=== PATIENT | female | born 2000 | race Caucasian/White ===

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

== ENCOUNTER 2019-02-12 16:48 | Emergency (ER) | payer OTHER ==
[2019-02-12] MEDS ORDERED: Lidocaine 1% INJ* 10 MG/ML 30 ML SDV INJ ONE (16:58)
--- NOTE | 2019-02-12 16:58 | ED ---
Laceration/Wound HPI - HPI Summary HPI Summary: The patient is a 18 y/o F arriving by ambulance to [facility] with a chief complaint of laceration to the right medial thigh about 30-40 minutes prior to arrival. She reports that she had been using an [employer] knife while working on an art project and cut too far off of the board that she had sitting between her legs, causing her to hit the thigh. She is not experiencing any other symptoms at this time. Compression helped to resolve the bleeding. Currently, her pain is rated 5/10 in severity. She notes that she didnt eat much today and is hungry. Tetanus is UTD. PMHx: asthma, kidney stones with stent placement, anxiety, ADHD. Heavy every day smoker, occasional EtOH, marijuana use. Medications reviewed. Allergies noted. - History of Current Complaint Stated Complaint: "LACERATION PER EMS" Hx Obtained From: Patient Mechanism of Injury: Sharp/Blunt Trauma Onset/Duration: Sudden Onset, Still Present Aggravating: Nothing Alleviating: Compression Onset Severity: Moderate Current Severity: Moderate Pain Intensity: 5 Pain Scale Used: 0-10 Numeric Associated Signs & Symptoms: Pain - Additional Pertinent History Primary Care Physician: [id number] - Allergy/Home Medications Allergies/Adverse Reactions: Allergies Allergy/AdvReac Type Severity Reaction Status Date / Time No Known Allergies Allergy Verified 02/12/19 16:51 PMH/Surg Hx/FS Hx/Imm Hx Endocrine/Hematology History: Denies: Hx Diabetes Cardiovascular History: Denies: Hx Hypertension Respiratory History: Reports: Hx Asthma GI History: Reports: Other GI Disorders - leaky gut syndrome History: Reports: Hx Kidney Stones, Other Problems/Disorders - UTI Sensory History: Reports: Hx Contacts or Glasses Denies: Hx Hearing Aid Opthamlomology History: Reports: Hx Contacts or Glasses Neurological History: Reports: Hx Migraine - with aura Psychiatric History: Reports: Hx Anxiety, Hx Attention Deficit Hyperactivity Disorder - Surgical History Surgical History: Yes Surgery Procedure, Year, and Place: stent placed in kidney, [facility] 2019 Infectious Disease History: No Infectious Disease History: Denies: Traveled Outside the [place] in Last 30 Days - Family History Known Family History: Positive: Other - Mother - kidney stones, UTI Negative: Cardiac Disease, Hypertension, Diabetes - Social History Alcohol Use: Occasionally Hx Substance Use: Yes Substance Use Type: Reports: Marijuana Hx Tobacco Use: Yes Smoking Status (MU): Heavy Every Day Tobacco Smoker Review of Systems Negative: Fever Positive: Other - laceration to the right medial thigh All Other Systems Reviewed And Are Negative: Yes Physical Exam - Summary Physical Exam Summary: General: Well appearing, no distress HEENT: PERRL Cardiovascular: Skin is well perfused Pulmonary: No respiratory distress, no tachypnea Abdomen: Non-distended Skin: 6cm laceration on the right medial thigh, Warm, pink, dry MSK: No edema Psych: Normal affect Neuro: A&Ox3 Triage Information Reviewed: Yes Vital Signs Reviewed: Yes Procedures - Sedation Patient Received Moderate/Deep Sedation with Procedure: No - Laceration/Wound Repair 1 Location: lower extremity - right medial thigh Description: Linear Anesthesia: 1.0%, Lido - 8ccs Length, Depth and Shape: 6cm Laceration/Wound Explored: clean Suture Type: Prolene - 5-0 Number of Sutures: 4 Re-Evaluation - Re-Evaluation First Eval Re-Evaluation Time: 17:15 Change: Improved Comment: Performed laceration repair. Pt tolerated well. Laceration Repair Course/Dx - Course Course Of Treatment: 18 y/o F p/w R leg lac. 6 cm lac, repaired. UTD tetanus - Clinical Impression Provider Diagnoses: Laceration Discharge ED - Sign-Out/Discharge Documenting (check all that apply): Patient Departure - Patient will be discharged home. - Discharge Plan Condition: Stable Disposition: HOME Patient Education Materials: Laceration (ED) Referrals: [facility] [Z.BUSINESS, APPLICATION, OTHER] - 3 Days Additional Instructions: You received sutures (stitches) today. These need to be removed in 10-12 days. Please keep the area dry and clean. Return to the emergency department or seek medical attention for drainage, redness to the area, increased pain around the laceration. Once the wound is healed, you can apply sunscreen to help with scar prevention. - Billing Disposition and Condition Condition: STABLE Disposition: Home - Attestation Statements Document Initiated by Scribe: Yes Documenting Scribe: Beti Baldwin Provider For Whom Jeffrey is Documenting (Include Credential): Dr. Monica Wilson MD Scribe Attestation: Beti Stanley, scribed for Dr. Monica Wilson MD on 10/26/19 at 1733. Scribe Documentation Reviewed: Yes Provider Attestation: The documentation as recorded by the scribe, Beti Baldwin accurately reflects the service I personally performed and the decisions made by me, Dr. Monica Wilson MD Status of Jeffrey Document: Viewed
[2019-02-12 19:18] VITALS: BP 121/80
== END 2019-02-12 17:48 | disposition home or self-care (01) ==
LOC: ED 16:48
DX: S71.111A Laceration without foreign body, right thigh, initial encounter (principal); W27.8XXA Contact with other nonpowered hand tool, initial encounter; Y92.9 Unspecified place or not applicable; J45.909 Unspecified asthma, uncomplicated; F41.9 Anxiety disorder, unspecified; F90.9 Attention-deficit hyperactivity disorder, unspecified type; F17.200 Nicotine dependence, unspecified, uncomplicated; Z79.899 Other long term (current) drug therapy
CPT/HCPCS: 12002; 99282